=== PATIENT | female | born 1955 | race Caucasian/White ===

== ENCOUNTER 2016-06-17 09:37 | Outpatient (CLI) | payer OTHER | END 2016-06-17 09:38 | disposition home or self-care (01) | DX: M85.80 Other specified disorders of bone density and structure, unspecified site (principal) ==

== ENCOUNTER 2016-06-17 09:40 | Outpatient (CLI) | payer OTHER | END 2016-06-17 09:41 | disposition home or self-care (01) | DX: Z12.31 Encounter for screening mammogram for malignant neoplasm of breast (principal) ==

== ENCOUNTER 2017-01-21 16:07 | Observation (INO) | payer OTHER ==
--- NOTE | 2017-01-21 16:55 | ED Physician Documentation ---
PD HPI FOCAL NEURO - Stated complaint Stated Complaint: DIZZY/BLURRY VISION - Chief complaint Chief Complaint: Neuro - History obtained from History obtained from: Patient - History of Present Illness Timing - onset: Other (At approximately 3 PM she developed dizziness, first lightheadedness and then feeling off balance and a friend noticed she was slurring her speech and she was having difficulty texting on the phone. The at one point thought that she had some disconjugate gaze with the left eye being superiorly deviated. She feels mostly better now but not completely resolved.) Review of Systems Ten Systems: 10 systems reviewed and negative Constitutional: denies: Fever, Chills Eyes: denies: Loss of vision, Decreased vision, Photophobia Ears: denies: Loss of hearing, Ear pain Nose: denies: Rhinorrhea / runny nose, Congestion Cardiac: denies: Chest pain / pressure, Palpitations Respiratory: denies: Dyspnea, Cough PD PAST MEDICAL HISTORY - Past Medical History Cardiovascular: None Respiratory: None Endocrine/Autoimmune: HyPOthyroidism GI: GERD : None HEENT: None Psych: None Musculoskeletal: None Derm: None - Past Surgical History General: 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, 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 - Present Medications Home Medications: Ambulatory Orders Medication Instructions Recorded Confirmed Levothyroxine [Synthroid] 25 mcg PO DAILY 08/14/14 10/13/14 Omeprazole [Prilosec] 1 tab PO BID 08/14/14 10/13/14 Fexofenadine [Danielle] 180 mg PO DAILY 10/03/14 10/03/14 - Allergies Allergies/Adverse Reactions: Allergies Allergy/AdvReac Type Severity Reaction Status Date / Time codeine AdvReac Severe Nausea Verified 10/03/14 14:44 amoxicillin trihydrate * AdvReac Intermediate Yeast Verified 10/03/14 14:44 [From Augmentin] Infection potassium clavulanate * AdvReac Intermediate Yeast Verified 10/03/14 14:44 [From Augmentin] Infection - Social History Does the pt drink ETOH?: No Does the pt have substance abuse?: No - Family History Family history: reports: Non contributory PD ED PE NORMAL - Vitals Vital signs reviewed: Yes - General General: Alert and oriented X 3, No acute distress - HEENT HEENT: PERRL, EOMI - Neck Neck: Supple, no meningeal sign, No bony TTP - Cardiac Cardiac: RRR, No murmur - Respiratory Respiratory: No respiratory distress, Clear bilaterally - Abdomen Abdomen: Normal bowel sounds, Soft, Non tender - Back Back: No CVA TTP, No spinal TTP - Extremities Extremities: No edema, No calf tenderness / cord - Neuro Neuro: Alert and oriented X 3, Normal speech - Psych Psych: Normal mood, Normal affect NIHSS - Time Time: 16:45 - Level of Consciousness Level of consciousness: (0) Alert, Keenly responsive LOC Questions: (0) Answers both Q's correct LOC Commands: (0) Performs both correctly - Gaze Best Gaze: (0) Normal - Visual Visual: (0) No loss - Facial Palsy Facial Palsy: (0) Normal, symmetrical movement - Motor Arms (both separate) Motor Arm (right): (0) No drift Motor Arm (left): (0) No drift - Motor Legs (both separate) Motor Leg (right): (0) No drift Motor Leg (left): (0) No drift - Limb Ataxia Limb Ataxia: (0) Absent - Sensory Sensory: (0) Normal - Best Language Best Language: (0) No aphasia - Dysarthria Dysarthria: (0) Normal - Extinction and Inattention (formally neg Extinction and inattention: (0) No abnormality - Total Score/Results Total Score/Result: 0 Results - Vitals Vitals: Vital Signs - 24 hr 01/21/17 16:36 Temperature 35.8 C L Heart Rate 57 L Respiratory 16 Rate Blood Pressure 125/78 O2 Saturation 100 Oxygen O2 Source Room air - EKG (time done) 1712 Rate: Rate (enter#) (50) Rhythm: NSR [place]: Normal Intervals: Normal [place] QRS: Normal Ischemia: Normal ST segments Computer interpretation: Agree with computer - Labs Labs: Laboratory Tests 01/21/17 01/21/17 01/21/17 16:45 16:45 16:45 WBC 5.1 RBC 4.92 Hgb 14.7 Hct 43.7 MCV 88.7 MCH 29.8 MCHC 33.6 RDW 12.6 Plt Count 142 MPV 9.6 Neut # 3.4 Lymph # 1.0 L [place]ill # 0.5 Eos # 0.1 Baso # 0.0 Absolute Nucleated RBC 0.01 Nucleated RBCs 0.1 PT 11.5 INR 1.0 Sodium 139 Potassium 3.8 Chloride 101 Carbon Dioxide 30 Anion Gap 8.0 BUN 19 Creatinine 0.6 Estimated GFR (MDRD) 101 Glucose 104 H POC Whole Bld Glucose Calcium 9.4 Total Bilirubin 0.3 AST 36 ALT 36 Alkaline Phosphatase 74 Total Protein 7.0 Albumin 4.6 Globulin 2.4 Albumin/Globulin Ratio 1.9 Lipase 55 H 01/21/17 17:15 WBC RBC Hgb Hct MCV MCH MCHC RDW Plt Count MPV Neut # Lymph # Traill # Eos # Baso # Absolute Nucleated RBC Nucleated RBCs PT INR Sodium Potassium Chloride Carbon Dioxide Anion Gap BUN Creatinine Estimated GFR (MDRD) Glucose POC Whole Bld Glucose 93 Calcium Total Bilirubin AST ALT Alkaline Phosphatase Total Protein Albumin Globulin Albumin/Globulin Ratio Lipase - Rads (name of study) CT head Radiology: EMP read contemporaneously (normal) PD MEDICAL DECISION MAKING - ED course ED course: This is a 61-year-old woman with acute strokelike symptoms, she presents within the window for TPA, however at this juncture her examination is normal with a 0 on the NIH stroke scale, and her symptoms are rapidly resolving. Her head CT was negative, her examination remained unremarkable. Call to the hospitalist for observation and likely carotid ultrasonography and potential MRI in the morning at 5:26 PM. 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
[2017-01-21 17:02] LABS: BASOPHILS % (AUTO) 0.7 %; EOSINOPHILS # (AUTO) 0.1 10^3/uL (0.0-0.7); EOSINOPHILS % (AUTO) 2.3 %; HCT - HEMATOCRIT 43.7 % (37.0-47.0); HGB - HEMOGLOBIN 14.7 g/dL (12.0-16.0); LYMPHOCYTES % (AUTO) 20.1 %; MEAN CORPUSCULAR HEMOGLOBIN 29.8 pg (27.0-31.0); MEAN CORPUSCULAR HGB CONC 33.6 g/dL (32.0-36.0); MEAN CORPUSCULAR VOLUME 88.7 fL (81.0-99.0); MEAN PLATELET VOLUME 9.6 fL (7.9-10.8); MONOCYTES # (AUTO) 0.5 10^3/uL (0.0-1.0); MONOCYTES % (AUTO) 9.9 %; NEUTROPHILS # (AUTO) 3.4 10^3/uL (1.5-6.6); NUCLEATED RED BLOOD CELLS AUTO 0.1 /100WBC; RED BLOOD COUNT 4.92 10^6/uL (4.20-5.40); RED CELL DISTRIBUTION WIDTH 12.6 % (12.0-15.0); UNCORRECTED WHITE BLOOD COUNT 5.1 x10^3/uL; WHITE BLOOD COUNT 5.1 x10^3/uL (4.8-10.8)
[2017-01-21 17:15] LABS: PT - PROTHROMBIN TIME 11.5 secs (9.9-12.6)
[2017-01-21 17:16] LABS: ALBUMIN/GLOBULIN RATIO 1.9 (1.0-2.2); BILIRUBIN,TOTAL 0.3 mg/dL (0.2-1.0); CALCIUM 9.4 mg/dL (8.5-10.3); CREATININE 0.6 mg/dL (0.4-1.0); POTASSIUM 3.8 mmol/L (3.5-5.0)
--- NOTE | 2017-01-21 17:19 | CT Report ---
EXAM: CT HEAD EXAM DATE: 01/21/2017 05:08 PM. CLINICAL HISTORY: Slurred speech, dizzy. COMPARISON: None. TECHNIQUE: Multiaxial CT images were obtained from the foramen magnum to the vertex. IV contrast: Non e. Reformats: Coronal. In accordance with CT protocol optimization, one or more of the following dose reduction techniques w ere utilized for this exam: automated exposure control, adjustment of mA and/or KV based on patient s ize, or use of iterative reconstructive technique. FINDINGS: Parenchyma: No intraparenchymal hemorrhage. No evidence of mass, midline shift, or CT findings of inf arction. Alvarenga-white differentiation is distinct. Extraaxial Spaces: Normal for age. No subdural or epidural collections identified. Ventricles: Normal in size and position. Sinuses: Imaged paranasal sinuses, orbits, and mastoids show no significant abnormality. Bones: No evidence of fracture or calvarial defect. Other: None. IMPRESSION: No acute intracranial abnormality. [facility] Critical test notification: The call report notification system was initiated by Dr. Richard Brock at 17:12 hrs on 01/21/17. The above findings were discussed with Dr. French by Dr. Richard Brock at 17:14 hrs on 01/21/17. Referring Provider Line: [phone] SITE ID: [id number]
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
[2017-01-21] MEDS ORDERED: ONDANSETRON ODT 4 MG TABLET TL PRN (18:42)
[2017-01-21] MEDS ORDERED: ACETAMINOPHEN 325 MG TABLET PO PRN (18:42)
[2017-01-21] MEDS ORDERED: SODIUM CHLORIDE FLUSH 0.9% 10 ML SYRINGE IVP PRN (18:42)
[2017-01-21 19:49] LABS: THYROID STIMULATING HORMONE 3.1 uIU/mL (0.34-5.60)
--- NOTE | 2017-01-21 20:04 | Ultrasound Preliminary Report ---
Exam: US Carotid Doppler Complete IMPRESSION: 1. Mild bilateral predominant calcified atheromatous plaque with no hemodynamically significant steno sis. Validated velocity measurements with angiographic measurements and velocity criteria are extrapolated from diameter data as defined by the Society of Radiologists in Ultrasound Consensus Conference Radi ology 2003; 229;340-346. [facility] SITE ID: [id number]
--- NOTE | 2017-01-21 20:07 | Ultrasound Report ---
EXAM: CAROTID DOPPLER ULTRASOUND EXAM DATE: 01/21/2017 07:38 PM. CLINICAL HISTORY: Tia or cva with lightheadedness. COMPARISON: None. TECHNIQUE: Real-time sonographic vascular imaging was performed by the director agricultural services through the Relative[employer]ai d arterial system with a linear transducer utilizing color-flow, Doppler flow and spectral analysis. Multiple inbound sales representative static images were saved for review. FINDINGS: Alvarenga scale evaluation of the carotid arteries demonstrates mild predominantly calcified ramya que in the distal common carotid arteries extending into the proximal internal carotid arteries. Peak systolic velocities and ICA/CCA ratios are within normal limits as follows Transcription to insert worksheet here. Other: None. IMPRESSION: 1. Mild bilateral predominant calcified atheromatous plaque with no hemodynamically significant steno sis. Validated velocity measurements with angiographic measurements and velocity criteria are extrapolated from diameter data as defined by the Society of Radiologists in Ultrasound Consensus Conference Radi ology 2003; 229;340-346. [facility] Referring Provider Line: [phone] SITE ID: [id number]
[2017-01-21] MEDS: SODIUM CHLORIDE 0.9% 1,000 ML IV SCH (20:24)
[2017-01-21 20:37] LABS: BILIRUBIN,URINE NEGATIVE (NEGATIVE); PH,URINE 6.5 PH (5.0-7.5)
[2017-01-21 20:46] LABS: UR CULTURE IF IND NOT INDICATED; WBC,URINE 0-3 /HPF (0-5)
[2017-01-21] MEDS: ASPIRIN CHEW 81 MG TABLET PO SCH (22:10)
[2017-01-21] MEDS: SODIUM CHLORIDE FLUSH 0.9% 10 ML SYRINGE IVP SCH (22:12)
[2017-01-21] MEDS: MULTIVITAMIN TABLET PO SCH (22:13)
[2017-01-21] MEDS ORDERED: diphenhydrAMINE 25 MG CAPSULE PO PRN (23:26)
[2017-01-22] MEDS: SODIUM CHLORIDE FLUSH 0.9% 10 ML SYRINGE IVP SCH (04:17)
[2017-01-22] MEDS: SODIUM CHLORIDE 0.9% 1,000 ML IV SCH (05:08)
[2017-01-22 06:11] LABS: BASOPHILS % (AUTO) 0.7 %; EOSINOPHILS # (AUTO) 0.1 10^3/uL (0.0-0.7); EOSINOPHILS % (AUTO) 3.4 %; HCT - HEMATOCRIT 38.5 % (37.0-47.0); LYMPHOCYTES # (AUTO) 1.4 10^3/uL (1.5-3.5); LYMPHOCYTES % (AUTO) 37.1 %; MEAN CORPUSCULAR HEMOGLOBIN 29.6 pg (27.0-31.0); MEAN CORPUSCULAR HGB CONC 33.7 g/dL (32.0-36.0); MEAN CORPUSCULAR VOLUME 87.9 fL (81.0-99.0); MEAN PLATELET VOLUME 9.3 fL (7.9-10.8); MONOCYTES # (AUTO) 0.4 10^3/uL (0.0-1.0); MONOCYTES % (AUTO) 12.2 %; NEUTROPHILS # (AUTO) 1.7 10^3/uL (1.5-6.6); NEUTROPHILS % (AUTO) 46.6 %; NUCLEATED RED BLOOD CELLS AUTO 0.1 /100WBC; RED BLOOD COUNT 4.38 10^6/uL (4.20-5.40); RED CELL DISTRIBUTION WIDTH 12.5 % (12.0-15.0); UNCORRECTED WHITE BLOOD COUNT 3.6 x10^3/uL; WHITE BLOOD COUNT 3.6 x10^3/uL (4.8-10.8)
[2017-01-22 06:27] LABS: ALBUMIN/GLOBULIN RATIO 1.7 (1.0-2.2); BILIRUBIN,TOTAL 0.6 mg/dL (0.2-1.0); BUN - BLOOD UREA NITROGEN 15 mg/dL (6-20); CALCIUM 8.5 mg/dL (8.5-10.3); CARBON DIOXIDE - CO2 28 mmol/L (21-32); CHLORIDE 106 mmol/L (101-111); CHOLESTEROL 166 mg/dL; CREATININE 0.5 mg/dL (0.4-1.0); GFR - MDRD 125 (>89); GLUCOSE 93 mg/dL (70-100); HDL CHOLESTEROL 56 mg/dL; LDL/HDL RATIO 1.8 (<4.4); POTASSIUM 3.6 mmol/L (3.5-5.0); SODIUM 140 mmol/L (135-145); TOTAL PROTEIN 5.7 g/dL (6.7-8.2); TRIGLYCERIDES 55 mg/dL; VLDL CHOLESTEROL 11 mg/dL
[2017-01-22] MEDS ORDERED: LEVOTHYROXINE 25 MCG TABLET PO SCH (07:00)
[2017-01-22] MEDS ORDERED: SACCHAROMYCES BOULARDII 250 MG CAPSULE PO SCH (08:00)
--- NOTE | 2017-01-22 08:04 | Discharge Plan ---
Discharge Plan Disposition: 01 Home, Self Care Condition: Good Prescriptions: Rachel-3 Acid Ethyl Esters [Lovaza] 1 gm PO BID #60 capsule Melatonin/Herbal Complex #184 [Melatonin + l-Theanine Softgel] 6 mg PO QPM #60 capsule Multivitamin [Theragran] 1 tab PO DAILYWM #30 tablet Cholecalciferol [Vitamin D3] 5,000 unit PO BID #60 capsule Diet: Regular Activity Restrictions: No Restrictions Shower Restrictions: No Driving Restrictions: No Weight Bearing: Full Weight Instruction Topics: Headache Migraine Triggers Prevent Additional Instructions or Follow Up instructions: Please continue all medications as prescribed. You have been given prescriptions for supplements to take daily Please eat a gluten free dairy free diet for at least 3 weeks to see if this has any affect on your headaches and fatigue. You have been given some information regarding meals and healthy eating habits continue to exercise daily walking is a great form. Get plenty of sleep nightly. Avoid soda and limit caffeine. Drink more water daily Return to the ER if symptoms worsen or you have chest pain or shortness of breath. See your PCP within one week of discharge or sooner if symptoms return. FOR INFORMATION REGARDING THE [facility] PLEASE VISIT [email or web address] Also additional questions can be addressed to Nelly Laguna, MPH/MSN [phone] and request consult for telehealth or for any questions via email. Please see the information provided regarding an antiinflammatory diet No Smoking: If you smoke, Please STOP! Call for help. Follow-up with: Lina Florence MD [Primary Care Provider] -
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
[2017-01-22] MEDS ORDERED: ENOXAPARIN 40 MG/0.4 ML SYRINGE SUBQ SCH (09:00)
[2017-01-22] MEDS ORDERED: OMEGA-3 ACID ETHYL ESTERS 1 GM CAPSULE PO SCH (09:00)
[2017-01-22] MEDS ORDERED: POLYETHYLENE GLYCOL 3350 17 GM PACKET PO SCH (09:00)
[2017-01-22] MEDS: MULTIVITAMIN TABLET PO SCH (09:13)
[2017-01-22] MEDS: ASPIRIN CHEW 81 MG TABLET PO SCH (09:13)
[2017-01-22] MEDS ORDERED: GADOBUTROL 7.5 MMOL/7.5 ML VIAL IVP ONE (11:59)
[2017-01-22 12:20] VITALS: BP 127/75
--- NOTE | 2017-01-22 13:07 | MRI Preliminary Report ---
Exam: MRI Brain W/O IMPRESSION: 1. No MRI evidence of acute or subacute infarct, intracranial hemorrhage, mass/mass effect, midline s hift, or hydrocephalus. 2. Concurrently obtained MRA head and MRA neck are dictated separately. 3. Scattered T2/FLAIR hyperintense subcortical, deep, and periventricular white matter lesions within cerebral hemispheres bilaterally. While nonspecific, these are favored to represent sequela of chron ic microangiopathy. RADIA SITE ID: [id number]
--- NOTE | 2017-01-22 13:10 | MRI Report ---
EXAM: MRI BRAIN WITHOUT CONTRAST EXAM DATE: 01/22/2017 12:28 PM. CLINICAL HISTORY: Cva. COMPARISON: CT head 01/21/2017 TECHNIQUE: Multiplanar, multisequence T1-weighted and fluid-sensitive MR sequences of the brain were performed. Sequences optimized for routine evaluation. Other: None. IV Contrast: None. FINDINGS: Brain Volume: Normal for age. Parenchyma/Dura: No masses, infarcts, or hemorrhage. Scattered T2/FLAIR hyperintense subcortical, dahlia p, and periventricular white matter lesions within cerebral hemispheres bilaterally. No parenchymal m icrohemorrhages. Ventricles/Cisterns: Normal. No hydrocephalus. Sinuses: Normal. No sinusitis evident. Bones: Normal. Other: None. IMPRESSION: 1. No MRI evidence of acute or subacute infarct, intracranial hemorrhage, mass/mass effect, midline s hift, or hydrocephalus. 2. Concurrently obtained MRA head and MRA neck are dictated separately. 3. Scattered T2/FLAIR hyperintense subcortical, deep, and periventricular white matter lesions within cerebral hemispheres bilaterally. While nonspecific, these are favored to represent sequela of chron ic microangiopathy. [facility] Referring Provider Line: [phone] SITE ID: [id number]
--- NOTE | 2017-01-22 13:31 | MRI Preliminary Report ---
Exam: MRI Angio Neck W/WO (MRA) IMPRESSION: 1. Normal neck MRA. No hemodynamically significant , dissections, occlusions, aneurysms, vascular mal formations. 2. Concurrently obtained MRA head is dictated separately. [facility] SITE ID: [id number]
--- NOTE | 2017-01-22 13:34 | MRI Preliminary Report ---
Exam: MRI Angio Brain W/O (MRA) IMPRESSION: Normal brain MRA. No hemodynamically significant stenoses, dissections, occlusions, vascu lar formations, or aneurysms. [facility] SITE ID: [id number]
--- NOTE | 2017-01-22 13:34 | MRI Report ---
EXAM: MR ANGIOGRAM NECK EXAM DATE: 01/22/2017 12:27 PM. CLINICAL HISTORY: Cva. COMPARISON: Carotid ultrasound 01/21/2017 TECHNIQUE: Multiplanar, multisequence MRA sequences of the neck were performed. Other: None. Post-pro cessing: Multiplanar 3D MIP reconstructions. IV Contrast: Without and with. 6 mL Gadavist Evaluation of arterial stenosis is based on a NASCET method of measurement. FINDINGS: RIGHT Common Carotid: Patent. No dissection or significant stenosis. Internal Carotid: Patent. No dissection or significant stenosis. External Carotid: Patent. No dissection or significant stenosis. Vertebral: Patent. No dissection or significant stenosis. LEFT Common Carotid: Patent. No dissection or significant stenosis. Internal Carotid: Patent. No dissection or significant stenosis. External Carotid: Patent. No dissection or significant stenosis. Vertebral: Patent. No dissection or significant stenosis. Intracranial Circulation: Concurrently obtained MR head restricted separately. Other: The soft tissues, bones, and lung apices are within normal limits. IMPRESSION: 1. Normal neck MRA. No hemodynamically significant , dissections, occlusions, aneurysms, vascular mal formations. 2. Concurrently obtained MRA head is dictated separately. [facility] Referring Provider Line: [phone] SITE ID: [id number]
--- NOTE | 2017-01-22 13:37 | MRI Report ---
EXAM MRA BRAIN EXAM DATE: 01/22/2017 12:27 PM. CLINICAL HISTORY: Cva. COMPARISON: MRI brain and MRA neck obtained concurrently TECHNIQUE: Multiplanar, multisequence MRA sequences of the brain were performed. Other: None. Post-pr ocessing: Multiplanar 3D MIP reconstructions. IV Contrast: None. FINDINGS: RIGHT Internal Carotid (ICA): No aneurysm, stenosis or anomaly. Middle Cerebral (MCA): No aneurysm, stenosis or anomaly. Anterior Cerebral (RITA): No aneurysm, stenosis or anomaly. Posterior Cerebral (CONSTRUCTION CREW MEMBER): No aneurysm, stenosis or anomaly. Posterior Communicating (P-COM): No aneurysm, stenosis or anomaly. Vertebral: No aneurysm, stenosis or anomaly in the visualized upper vertebral artery. LEFT Internal Carotid (ICA): No aneurysm, stenosis or anomaly. Middle Cerebral (MCA): No aneurysm, stenosis or anomaly. Anterior Cerebral (RITA): No aneurysm, stenosis or anomaly. Posterior Cerebral (CONSTRUCTION CREW MEMBER): No aneurysm, stenosis or anomaly. Posterior Communicating (P-COM): No aneurysm, stenosis or anomaly. Vertebral: No aneurysm, stenosis or anomaly in the visualized upper vertebral artery. MIDLINE Anterior Communicating (A-COM): No aneurysm, stenosis or anomaly. Other: None. IMPRESSION: Normal brain MRA. No hemodynamically significant stenoses, dissections, occlusions, vascu lar formations, or aneurysms. [facility] Referring Provider Line: [phone] SITE ID: [id number]
== END 2017-01-22 13:05 | disposition home or self-care (01) ==
LOC: ED 16:07 → OBS 18:32
PROVIDERS: ADMIT Nurse Practitioner; ATTEND Nurse Practitioner
DX: R51 Headache (principal); R42 Dizziness and giddiness; R53.1 Weakness; E03.9 Hypothyroidism, unspecified; K21.9 Gastro-esophageal reflux disease without esophagitis; Z79.899 Other long term (current) drug therapy
CPT/HCPCS: 36415; 70450; 70544; 70549; 70551; 80053; 80061; 81001; 82607; 83690; 83735; 84439; 84443; 84481; 84484; 85025; 85610; 85730; 93005; 93306; 93880; 96360; 96361; 96372; 99284; 99285; A9270; A9585; G0378; J1650; 87086

== ENCOUNTER 2017-06-18 10:48 | Outpatient (CLI) | payer OTHER ==
--- NOTE | 2017-06-19 15:41 | Mammography Report ---
DIGITAL SCREENING MAMMOGRAM: 06/18/2017 CLINICAL INDICATION: A 61-year-old, for screening. COMPARISON: 06/2016, 05/2014, 05/2013, 05/2012, 03/2011, 03/2010. TECHNIQUE: Routine CC and MLO projections were obtained of the breasts. FINDINGS: The breasts again demonstrate heterogeneously dense fibroglandular parenchyma bilaterally. Coarse, typically benign calcifications are present. No suspicious masses, clustered microcalcifications, or regions of architectural distortion are identified. IMPRESSION: BENIGN FINDINGS. RECOMMENDATION: ROUTINE ANNUAL SCREENING UNLESS OTHERWISE CLINICALLY INDICATED. BIRADS CATEGORY 2-BENIGN FINDINGS. STANDARD QUALIFYING STATEMENTS: 1. This examination was reviewed with the aid of Computer-Aided Detection (CAD). 2. A negative or benign imaging report should not delay biopsy if clinically suspicious findings are present. Consider surgical consultation if warranted. More than 5% of cancers are not identified by imaging. 3. Dense breasts may obscure an underlying neoplasm. TD: 06/19/2017 15:36
== END 2017-06-18 10:49 | disposition home or self-care (01) ==
LOC: DI 10:48
PROVIDERS: ATTEND Internal Medicine
DX: Z12.31 Encounter for screening mammogram for malignant neoplasm of breast (principal)
CPT/HCPCS: 77067

== ENCOUNTER 2017-06-24 09:17 | Outpatient (CLI) | payer OTHER | END 2017-06-24 09:18 | disposition home or self-care (01) | LOC: LAB 09:17 | PROVIDERS: ATTEND Internal Medicine | DX: K90.0 Celiac disease (principal) | CPT/HCPCS: 36415; 81599; 83516; 86255 ==

== ENCOUNTER 2018-07-05 10:48 | Outpatient (CLI) | payer OTHER ==
--- NOTE | 2018-07-06 08:49 | Mammography Report ---
Reason: SCREENING MAMMO Procedure Date: 07/05/2018 Accession Number: [id number] / [id number] Procedure: MGN - Screening Mammo Dig Bilat CPT Code: FULL RESULT: EXAM: Screening Mammo Dig Bilat DATE: 07/05/2018 11:12 AM CLINICAL HISTORY: Screening encounter. No reported risk factors. TECHNIQUE: Bilateral CC and MLO views were obtained. COMPARISON: 06/18/2017 through 05/23/2013. FINDINGS: The breasts demonstrate heterogeneously dense fibroglandular parenchyma bilaterally. There are coarse typically benign calcifications. No suspicious masses, clustered microcalcifications, or regions of architectural distortion are identified. IMPRESSION: Benign findings RECOMMENDATION: Routine annual screening unless otherwise clinically indicated. BIRADS CATEGORY 2: Benign findings STANDARD QUALIFYING STATEMENTS: 1. This examination was reviewed with the aid of Computer-Aided Detection (CAD). 2. A negative or benign imaging report should not delay biopsy if clinically suspicious findings are present. Consider surgical consultation if warrented. More than 5% of cancers are not identified by imaging. 3. Dense breasts may obscure an underlying neoplasm.
== END 2018-07-05 10:49 | disposition home or self-care (01) ==
LOC: DI.N 10:48
PROVIDERS: ATTEND Internal Medicine
DX: Z12.31 Encounter for screening mammogram for malignant neoplasm of breast (principal)
CPT/HCPCS: 77067

== ENCOUNTER 2018-09-03 18:04 | Outpatient (CLI) | payer OTHER ==
--- NOTE | 2018-09-05 10:38 | Ultrasound Report ---
Reason: ABNORMAL LEVELS OF OTHER SERUM ENZYMES Procedure Date: 09/03/2018 Accession Number: [id number] / [id number] Procedure: US - Abdomen Limited CPT Code: FULL RESULT: EXAM: ABDOMEN ULTRASOUND LIMITED, RUQ EXAM DATE: 09/03/2018 06:30 PM. CLINICAL HISTORY: Abnormal levels of other serum enzymes. COMPARISON: ABDOMEN/PELVIS W/ 09/23/2014. TECHNIQUE: Real-time scanning was performed with static images obtained. FINDINGS: Liver: Normal in size and echotexture. 15.2 cm. Main portal vein flow: Hepatopetal. Gallbladder: Gallbladder surgically absent. Biliary System: CBD measures 3.5 mm. No intrahepatic or extrahepatic ductal dilatation. Pancreas: Limited visualization. Right kidney: 10 cm. No hydronephrosis. Abdominal aorta and IVC: Normal. Other: Examination limited by limited mobility and overlying bowel gas. IMPRESSION: 1. Status post cholecystectomy. 2. No liver mass or intrahepatic bile duct dilation. 3. No acute abnormality noted of the abdominal ultrasound. [facility]
== END 2018-09-03 18:05 | disposition home or self-care (01) ==
LOC: DI 18:04
PROVIDERS: ATTEND Internal Medicine
DX: R74.8 Abnormal levels of other serum enzymes (principal); Z90.49 Acquired absence of other specified parts of digestive tract
CPT/HCPCS: 76705

== ENCOUNTER 2019-04-04 10:55 | Outpatient (CLI) | payer OTHER ==
[2019-04-04 12:00] LABS: ALBUMIN 4.5 g/dL (3.2-5.5); ALKALINE PHOSPHATASE 43 IU/L (42-121); ALT ALANINE AMINOTRANSFERASE 34 IU/L (10-60); AST ASPARTATE AMINOTRANSFERASE 32 IU/L (10-42); BILIRUBIN,TOTAL 0.8 mg/dL (0.2-1.0); TOTAL PROTEIN 7.2 g/dL (6.7-8.2)
[2019-04-04 12:05] LABS: BILIRUBIN,DIRECT < 0.1 mg/dL (0.1-0.5)
== END 2019-04-04 10:56 | disposition home or self-care (01) ==
LOC: LAB 10:55
PROVIDERS: ATTEND Physician Assistant Medical
DX: Z79.899 Other long term (current) drug therapy (principal); B35.1 Tinea unguium
CPT/HCPCS: 36415; 80076

== ENCOUNTER 2019-10-14 14:25 | Outpatient (CLI) | payer MEDICARE, OTHER ==
[2019-10-14 14:57] LABS: BASOPHILS % (AUTO) 0.5 %; EOSINOPHILS # (AUTO) 0.1 10^3/uL (0.0-0.7); EOSINOPHILS % (AUTO) 2.1 %; HGB - HEMOGLOBIN 13.9 g/dL (12.0-16.0); LYMPHOCYTES # (AUTO) 1.1 10^3/uL (1.5-3.5); LYMPHOCYTES % (AUTO) 25.9 %; MEAN CORPUSCULAR HEMOGLOBIN 29.9 pg (27.0-31.0); MEAN CORPUSCULAR HGB CONC 32.7 g/dL (32.0-36.0); MEAN CORPUSCULAR VOLUME 91.4 fL (81.0-99.0); MEAN PLATELET VOLUME 9.8 fL (7.9-10.8); MONOCYTES # (AUTO) 0.4 10^3/uL (0.0-1.0); MONOCYTES % (AUTO) 9.9 %; NEUTROPHILS # (AUTO) 2.6 10^3/uL (1.5-6.6); NEUTROPHILS % (AUTO) 61.4 %; PLT - PLATELET COUNT 196 10^3/uL (130-450); RED BLOOD COUNT 4.65 10^6/uL (4.20-5.40); RED CELL DISTRIBUTION WIDTH 11.9 % (12.0-15.0); WHITE BLOOD COUNT 4.3 x10^3/uL (4.8-10.8)
[2019-10-14 15:51] LABS: RHEUMATOID FACTOR NEGATIVE (Negative)
== END 2019-10-14 14:26 | disposition home or self-care (01) ==
LOC: LAB 14:25
PROVIDERS: ATTEND Nurse Practitioner Family
DX: L40.0 Psoriasis vulgaris (principal)
CPT/HCPCS: 36415; 81599; 82728; 85025; 85651; 86200; 86430; 86812

== ENCOUNTER 2019-12-16 06:23 | Day surgery (SDC) | payer MEDICARE, OTHER ==
[2019-12-16] MEDS ORDERED: fentaNYL 250 MCG/5 ML VIAL IVP ONE (06:24)
[2019-12-16] MEDS ORDERED: MIDAZOLAM 2 MG/2 ML VIAL IVP ONE (06:24)
[2019-12-16] MEDS ORDERED: LIDO GARGLE 30 ML BOTTLE ONE (07:07)
[2019-12-16] MEDS ORDERED: LACTATED RINGERS 1,000 ML IV ONE ×2 (07:10→08:35)
[2019-12-16] MEDS ORDERED: BENZOCAINE/TETRACAINE/BUTAMBEN 20 GM TOP ONE (07:35)
[2019-12-16] MEDS ORDERED: LIDO GARGLE 30 ML BOTTLE TOP ONE (07:35)
[2019-12-16 09:09] VITALS: BP 117/93
== END 2019-12-16 06:24 | disposition home or self-care (01) ==
LOC: SDS 06:23
PROVIDERS: ATTEND Surgery
PROC: 0DB48ZX Excision of Esophagogastric Junction, Via Natural or Artificial Opening Endoscopic, Diagnostic (ICD-10-PCS; 2019-12-16)
PROC: 0DBN8ZX Excision of Sigmoid Colon, Via Natural or Artificial Opening Endoscopic, Diagnostic (ICD-10-PCS; principal; 2019-12-16 07:30)
PROC: 0DBL8ZX Excision of Transverse Colon, Via Natural or Artificial Opening Endoscopic, Diagnostic (ICD-10-PCS; 2019-12-16 07:30)
DX: Z12.11 Encounter for screening for malignant neoplasm of colon (principal); D12.3 Benign neoplasm of transverse colon; K63.5 Polyp of colon; K63.89 Other specified diseases of intestine; K21.9 Gastro-esophageal reflux disease without esophagitis; Z09 Encounter for follow-up examination after completed treatment for conditions other than malignant neoplasm; Z87.19 Personal history of other diseases of the digestive system
CPT/HCPCS: 43239; 45380; A9270; J3010; J7120

== ENCOUNTER 2020-07-19 18:47 | Outpatient (CLI) | payer MEDICARE, OTHER | END 2020-07-19 18:48 | disposition home or self-care (01) | LOC: COV 18:47 | PROVIDERS: ATTEND Family Medicine | DX: U07.1 COVID-19 (principal) ==

== ENCOUNTER 2020-08-07 15:02 | Outpatient (CLI) | payer MEDICARE, OTHER ==
[2020-08-09 13:41] LABS: ANA SCREEN NEGATIVE (NEGATIVE)
[2020-08-09 14:41] LABS: CERULOPLASMIN 33 mg/dL (18-53)
[2020-08-09 22:42] LABS: SMOOTH MUSCLE IGG AB <20 U
[2020-08-09 23:30] LABS: ALBUMIN 4.2 g/dL (3.8-4.8); ALPHA 1 GLOBULIN 0.3 g/dL (0.2-0.3); ALPHA 2 GLOBULIN 0.7 g/dL (0.5-0.9); BETA 1 GLOBULIN 0.4 g/dL (0.4-0.6); BETA 2 GLOBULIN 0.3 g/dL (0.2-0.5); GAMMA GLOBULIN 0.7 g/dL (0.8-1.7)
[2020-08-10 00:33] LABS: LIVER KIDNEY MICROSOME AB <20.0 U
== END 2020-08-07 15:03 | disposition home or self-care (01) ==
LOC: LAB 15:02
PROVIDERS: ATTEND Internal Medicine
DX: R74.8 Abnormal levels of other serum enzymes (principal)
CPT/HCPCS: 36415; 81599; 82105; 82390; 83516; 84155; 84165; 86038; 86255; 86376

== ENCOUNTER 2020-09-19 13:20 | Outpatient (CLI) | payer MEDICARE, OTHER ==
--- NOTE | 2020-09-19 15:29 | CT Report ---
PROCEDURE: ABDOMEN WO INDICATIONS: ELEVATED LFTS, ELEVATED AFP TECHNIQUE: Non-contrast 5 mm thick sections acquired from the diaphragm to the below aortic bifurcati on. 5 mm thick coronal and sagittal reformats were performed. COMPARISON: None. INDICATIONS: ELEVATED LFTS, ELEVATED AFP. COMPARISON: Ultrasound abdomen limited, 09/03/2018. CT abdomen and pelvis with contrast, 09/23/2014. FINDINGS: Image quality: Excellent. Lung bases: Lung bases are clear. Heart size is normal. Small hiatal hernia Genitourinary system: Both kidneys are normal in size. No kidney stones. No hydronephrosis or bianca nephric fat stranding. Both ureters are non-distended through their expected courses. Bladder wall is normal in thickness; no bladder stones. Abdomen: Liver and spleen are normal in size. Gallbladder wall is surgically absent. Pancreas is n ormal in size. No adrenal nodules. Unopacified bowel loops demonstrate normal caliber and wall thic kness. No retroperitoneal or mesenteric adenopathy. Aorta and inferior vena cava are normal in size . No free fluid or air. Bones: No suspicious bony abnormalities. No vertebral body compression fractures. Degenerative carrasco ges are noted in lumbar spine. IMPRESSION: 1. No abnormalities are identified on this noncontrast enhanced CT exam of abdomen. A cause for eleva ron LFT and AFP is not identified. Of note, a noncontrast enhanced CT is not adequate to exclude a he patic mass such as a hepatoma. Liver protocol CT or MRI is recommended for further evaluation if clin ically indicated. Reviewed by: Kehinde Limon MD on 09/19/2020 3:28 PM PDT Approved by: Kehinde Limon MD on 09/19/2020 3:28 PM PDT Station ID: [id number]
== END 2020-09-19 13:21 | disposition home or self-care (01) ==
LOC: DI 13:20
PROVIDERS: ATTEND Internal Medicine
DX: R94.5 Abnormal results of liver function studies (principal); R77.2 Abnormality of alphafetoprotein

== ENCOUNTER 2020-10-01 13:11 | Outpatient (CLI) | payer MEDICARE, OTHER ==
[2020-10-01] MEDS ORDERED: GADOBUTROL 10 MMOL/10 ML VIAL ONE (13:31)
[2020-10-01 13:37] LABS: CREATININE 0.7 mg/dL (0.4-1.0)
--- NOTE | 2020-10-01 16:37 | MRI Report ---
PROCEDURE: Abdomen W/WO INDICATIONS: ELEVATED LFTS CONTRAST: IV CONTRAST: Gadavist ml: 5.7 TECHNIQUE: Coronal ultra fast SE, axial 2D spoiled GE in- and [id number]; axial breath-hold T2 fast SE. Dynam ic axial ultra fast GE during the administration of contrast; post-contrast coronal ultra fast GE or 2D spoiled GE with fat saturation from the hepatic dome to the iliac crests. Optional diffusion weig hted imaging and ADC may be performed. COMPARISON: CT abdomen pelvis 09/19/2020, abdominal ultrasound 09/03/2018 FINDINGS: Image quality: Suboptimal secondary to patient motion.. Lung bases: No basal pleural effusions. Heart size is normal. Solid organs: Liver and spleen are normal in size and enhancement. No significant hepatic steatosis . 8 mm cyst along the lateral aspect of the left hepatic lobe. No suspicious enhancing liver mass. Ga llbladder is surgically absent. Minor diffuse intrahepatic biliary dilatation, mainly centrally. The extrahepatic common duct is smooth contour and measures up to 11 mm in caliber. Tapers normally to th e ampulla and there are no intrinsic filling defects. Pancreatic duct is nondilated. Pancreas is norm al in morphology. No adrenal nodules. Both kidneys demonstrate normal size and enhancement, without hydronephrosis. Nodes and vessels: No retroperitoneal or mesenteric adenopathy by size criteria. Aorta and inferior vena cava are normal in size. Bowel and peritoneum: Unenhanced bowel loops are normal in caliber. No free fluid. Bones and soft tissues: No ventral hernias. Bone marrow is normal in overall signal. IMPRESSION: 1. Mild diffuse biliary duct dilatation without filling defect or extrinsic distal compression. This may be in part due to cholecystectomy change. Correlate with serial enzymes. 2. No suspicious liver mass to explain elevated AFP levels. Reviewed by: Fiona Obrien MD on 10/01/2020 4:36 PM PDT Approved by: Fiona Obrien MD on 10/01/2020 4:36 PM PDT Station ID: [id number]
== END 2020-10-01 13:12 | disposition home or self-care (01) ==
LOC: LAB 13:11
PROVIDERS: ATTEND Internal Medicine
DX: K83.9 Disease of biliary tract, unspecified (principal); R74.8 Abnormal levels of other serum enzymes; R77.2 Abnormality of alphafetoprotein; Z79.899 Other long term (current) drug therapy
CPT/HCPCS: 36415; 74183; 82565; A9585

== ENCOUNTER 2020-10-10 11:00 | Outpatient (CLI) | payer MEDICARE, OTHER ==
[2020-10-01] MEDS: GADOBUTROL 10 MMOL/10 ML VIAL IVP ONE (16:45)
--- NOTE | 2020-10-11 13:30 | Mammography Report ---
BILATERAL DIGITAL SCREENING MAMMOGRAM 3D/2D: 10/10/2020 CLINICAL: Routine screening. Comparison is made to exams dated: 10/24/2019 mammogram, 07/05/2018 mammogram, 06/18/2017 mammogram, 06/17 mammogram, 05/27/2014 mammogram, and 05/23/2013 mammogram - [facility]. The ti ssue of both breasts is heterogeneously dense. This may lower the sensitivity of mammography. No significant masses, calcifications, or other findings are seen in either breast. There has been no significant interval change. IMPRESSION: NEGATIVE There is no mammographic evidence of malignancy. A 1 year screening mammogram is recommended. This exam was interpreted at Station ID: [id number]. NOTE: For mammograms, a report in lay terms will be sent to the patient. Approximately 15% of breast malignancies will not be visualized mammographically. In the management of a palpable breast mass, a negative mammogram must not discourage biopsy of a clinically suspicious lesion. Electronically Signed By: Edis Ibarra M.D. ddp/penrad:10/10/2020 14:29:48 ACR BI-RADS Category 1: Negative 3341F PARENCHYMAL PATTERN: (D) - The breast(s) demonstrate(s) heterogeneously dense fibroglandular kesha daniel. BI-RADS CATEGORY: (1) - 1 RECOMMENDATION: (ANNUAL) - Recommend routine annual screening mammography. 20211011 1 year screening LATERALITY: (B)
== END 2020-10-10 11:01 | disposition home or self-care (01) ==
LOC: DI 11:00
PROVIDERS: ATTEND Internal Medicine
DX: Z12.31 Encounter for screening mammogram for malignant neoplasm of breast (principal)

== ENCOUNTER 2021-08-19 08:00 | Outpatient (CLI) | payer MEDICARE, OTHER ==
[2021-08-19 17:44] LABS: BASOPHILS % (AUTO) 0.6 %; EOSINOPHILS # (AUTO) 0.2 10^3/uL (0.0-0.7); EOSINOPHILS % (AUTO) 6.1 %; HCT - HEMATOCRIT 43.9 % (37.0-47.0); HGB - HEMOGLOBIN 14.1 g/dL (12.0-16.0); LYMPHOCYTES # (AUTO) 1.1 10^3/uL (1.5-3.5); LYMPHOCYTES % (AUTO) 32.2 %; MEAN CORPUSCULAR HEMOGLOBIN 29.7 pg (27.0-31.0); MEAN CORPUSCULAR HGB CONC 32.1 g/dL (32.0-36.0); MEAN CORPUSCULAR VOLUME 92.4 fL (81.0-99.0); MEAN PLATELET VOLUME 10.4 fL (7.9-10.8); MONOCYTES # (AUTO) 0.4 10^3/uL (0.0-1.0); MONOCYTES % (AUTO) 10.7 %; NEUTROPHILS # (AUTO) 1.6 10^3/uL (1.5-6.6); NEUTROPHILS % (AUTO) 50.4 %; PLT - PLATELET COUNT 167 10^3/uL (130-450); RED BLOOD COUNT 4.75 10^6/uL (4.20-5.40); RED CELL DISTRIBUTION WIDTH 11.6 % (12.0-15.0); WHITE BLOOD COUNT 3.3 x10^3/uL (4.8-10.8)
[2021-08-19 18:18] LABS: ALBUMIN 4.2 g/dL (3.2-5.5); ALBUMIN/GLOBULIN RATIO 1.4 (1.0-2.2); ALKALINE PHOSPHATASE 35 IU/L (42-121); ALT ALANINE AMINOTRANSFERASE 29 IU/L (10-60); AST ASPARTATE AMINOTRANSFERASE 29 IU/L (10-42); BILIRUBIN,TOTAL 0.8 mg/dL (0.2-1.0); BUN - BLOOD UREA NITROGEN 19 mg/dL (6-20); CALCIUM 9.3 mg/dL (8.5-10.3); CARBON DIOXIDE - CO2 31 mmol/L (21-32); CHLORIDE 98 mmol/L (101-111); CHOL/HDL RATIO 2.6 (<4.4); CHOLESTEROL 242 mg/dL; CREATININE 0.6 mg/dL (0.4-1.0); GFR - MDRD 100 (>89); GLUCOSE 84 mg/dL (70-100); HDL CHOLESTEROL 93 mg/dL; LDL CHOLESTEROL,CALCULATED 135 mg/dL; LDL/HDL RATIO 1.5 (<4.4); POTASSIUM 3.8 mmol/L (3.5-5.0); SODIUM 139 mmol/L (135-145); TOTAL PROTEIN 7.2 g/dL (6.7-8.2); TRIGLYCERIDES 70 mg/dL; VLDL CHOLESTEROL 14 mg/dL
[2021-08-19 19:02] LABS: ESTIMATED AVERAGE GLUCOSE 114 mg/dL (70-100); HEMOGLOBIN A1c% 5.6 % (4.27-6.07)
[2021-08-19 19:07] LABS: THYROID STIMULATING HORMONE 3.23 uIU/mL (0.34-5.60)
[2021-08-19 19:09] LABS: FREE T4 (FREE THYROXINE) 1.03 ng/dL (0.58-1.64)
== END 2021-08-19 23:59 | disposition home or self-care (01) ==
LOC: LAB.R 08:00
PROVIDERS: ATTEND Internal Medicine
DX: Z00.00 Encounter for general adult medical examination without abnormal findings (principal); K22.70 Barrett's esophagus without dysplasia; R74.8 Abnormal levels of other serum enzymes; Z86.010 Personal history of colon polyps; R73.9 Hyperglycemia, unspecified; E78.5 Hyperlipidemia, unspecified; D72.819 Decreased white blood cell count, unspecified; C43.9 Malignant melanoma of skin, unspecified; M19.90 Unspecified osteoarthritis, unspecified site; M85.80 Other specified disorders of bone density and structure, unspecified site; Z86.16 Personal history of COVID-19; J32.9 Chronic sinusitis, unspecified; Z13.6 Encounter for screening for cardiovascular disorders; E02 Subclinical iodine-deficiency hypothyroidism; Z79.899 Other long term (current) drug therapy
CPT/HCPCS: 80053; 80061; 83036; 83721; 84439; 84443; 85025

== ENCOUNTER 2022-09-30 09:02 | Outpatient (CLI) | payer MEDICARE, OTHER ==
--- NOTE | 2022-09-30 13:42 | DEXA Report ---
PROCEDURE: Dexa Spine and/or Hip INDICATIONS: POST MENOPAUSAL TECHNIQUE: Dual energy x-ray absorptiometry (DXA) was performed on a [employer]sc[employer] System. Regions measur ed are the AP Spine, femoral neck, and if needed forearm. COMPARISON: 06/17/2016 FINDINGS: Lumbar Spine: Bone Mineral Density 1.151 g/cm/cm,T score -0.2. Since the most recent prior study, there has been a statistically significant increase in bone mineral density by 8.3% Left Femoral Neck: Bone Mineral Density 0.929 g/cm/cm, T score -0.8. Left Hip: Bone Mineral Density 1.000 g/cm/cm,T score -0.1. There has been no statistically significant change i n bone mineral density since the prior study. (T score greater or equal to -1.0: NORMAL) (T score from -1.1 to -2.4: OSTEOPENIA) (T score less than or equal to -2.5 to: OSTEOPOROSIS) Impression: By WHO criteria, this patient has normal bone density. Interval statistical increase in bone minteral density of the lumbar spine. No statistical interval c hange in bone minteral density of the hip. Patients with diagnosis of osteoporosis or osteopenia should have regular bone mineral density assess ment. For those eligible for Medicare, routine testing is allowed once every 2 years. Testing frequ ency can be increased for patients who have rapidly progressing disease or for those who are receivin g medical therapy to restore bone mass. Reviewed by: Ang Oh MD on 09/30/2022 1:41 PM PDT Approved by: Ang Oh MD on 09/30/2022 1:41 PM PDT Station ID: [id number]
== END 2022-09-30 09:03 | disposition home or self-care (01) ==
LOC: DI 09:02
PROVIDERS: ATTEND Internal Medicine
DX: Z78.0 Asymptomatic menopausal state (principal)

== ENCOUNTER 2022-09-30 09:02 | Outpatient (CLI) | payer MEDICARE, OTHER ==
--- NOTE | 2022-10-01 12:04 | Mammography Report ---
BILATERAL DIGITAL SCREENING MAMMOGRAM 3D/2D WITH EXAGGERATED CC: 09/30/2022 CLINICAL: Routine screening. Comparison is made to exams dated: 10/10/2020 mammogram, 10/24/2019 mammogram, 07/05/2018 mammogram, 06/18 mammogram, 06/17/2016 mammogram, and 05/27/2014 mammogram - [facility]. Both breasts are heterogeneously dense, which may obscure small masses (category c / 51-75% glandular tissue). No significant masses, calcifications, or other findings are seen in either breast. There has been no significant interval change. IMPRESSION: NEGATIVE There is no mammographic evidence of malignancy. A 1 year screening mammogram is recommended. Based on the Tyrer Cuzick model (a risk assessment model) the patients lifetime risk is 6.8% and her 10 year risk is 3.8%. According to the ACR, ACS, and NCCN guidelines, an annual breast MRI exam daniel g with mammogram is recommended if the patients lifetime risk is 20% or greater. This exam was interpreted at Station ID: [id number]. NOTE: For mammograms, a report in lay terms will be sent to the patient. Approximately 15% of breast malignancies will not be visualized mammographically. In the management of a palpable breast mass, a negative mammogram must not discourage biopsy of a clinically suspicious lesion. Electronically Signed By: Fiona ernandez/johnnie:09/30/2022 11:18:06 letter sent: No_Letter ACR BI-RADS Category 1: Negative 3341F PARENCHYMAL PATTERN: (D) - The breast(s) demonstrate(s) heterogeneously dense fibroglandular kesha daniel. BI-RADS CATEGORY: (1) - 1 Mammogram [id number] 1 year screening LATERALITY: (B)
== END 2022-09-30 09:03 | disposition home or self-care (01) ==
LOC: DI 09:02
PROVIDERS: ATTEND Internal Medicine
DX: Z12.31 Encounter for screening mammogram for malignant neoplasm of breast (principal)

== ENCOUNTER 2022-12-27 10:42 | Emergency (ER) | payer MEDICARE, OTHER ==
[2022-12-27 11:15] VITALS: BP 120/78; O2SAT 99
--- NOTE | 2022-12-27 11:15 | ED Physician Documentation ---
PD HPI LOWER EXT INJURY - Stated complaint Stated Complaint: RT LEG SWOLLEN - Chief complaint Chief Complaint: Ext Problem - History obtained from History obtained from: Patient - History of Present Illness PD HPI LOW EXT INJURY LOCATION: Right, Lower leg, Ankle Type of injury: Other (she had bug bites on lower legs 2 weeks ago that have persisted with abrasion type skin wound that on the right has not had increased swelling, tender, redness for few days.) Timing - duration: Days (the current redness/tender is few days.) Timing - details: Gradual onset Worsened by: Palpating Associated symptoms: Swelling, Discolored (red with warmth). 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 Derm: Skin cancer surgery - Present Medications Home Medications: Ambulatory Orders Medication Instructions Recorded Confirmed Levothyroxine [Synthroid] 25 mcg PO DAILY 08/14/14 12/15/19 Cholecalciferol [Vitamin D3] 5,000 unit PO BID #60 capsule 01/22/17 12/15/19 Multivitamin [Theragran] 1 tab PO DAILYWM #30 tablet 01/22/17 12/15/19 Mupirocin 2% Oint [Bactroban 2% 1 applic TOP TID #15 gm 12/27/22 Oint] cephALEXin [Keflex] 500 mg PO TID #18 cap 12/27/22 - Allergies Allergies/Adverse Reactions: Allergies Allergy/AdvReac Type Severity Reaction Status Date / Time codeine AdvReac Severe Nausea Verified 10/03/14 14:44 amoxicillin trihydrate * AdvReac Intermediate Yeast Verified 10/03/14 14:44 [From Augmentin] Infection potassium clavulanate * AdvReac Intermediate Yeast Verified 10/03/14 14:44 [From Augmentin] Infection - Social History Does the pt smoke?: No Smoking Status: Never smoker Does the pt drink ETOH?: No Does the pt have substance abuse?: No - Immunizations Immunizations are current?: Yes - POLST Patient has POLST: No POLST Status: Full Code PD ED PE NORMAL - Vitals Vital signs reviewed: Yes - General General: Alert and oriented X 3, No acute distress, Well developed/nourished - Derm Derm: Normal color, Warm and dry - Extremities Extremities: No calf tenderness / cord, Other (anterior right ankle with small abrasion appearing wound and surrounding redness/tender. Redness extends up to distal baig. No calf tenderness nor swelling. No fluctuance.) - Neuro Neuro: No motor deficit, No sensory deficit Results - Vitals Vitals: Oxygen O2 Source Room air PD Medical Decision Making - ED course Complexity details: considered differential (redness and tender anterior ankle up baig. not tender at calf and no swelling there. seems cellulitic in timing related to bug bite and persistent abrasion type wound for 2 weeks.), d/w patient Departure - Departure Disposition: 01 Home, Self Care Clinical Impression: Cellulitis of lower leg Bug bite Qualifiers: Encounter type: initial encounter Qualified Code(s): W57.XXXA - Bitten or stung by nonvenomous insect and other nonvenomous arthropods, initial encounter Condition: Stable Record reviewed to determine appropriate education?: Yes Instructions: ED Infec Skin Cellulitis Prescriptions: Mupirocin 2% Oint [Bactroban 2% Oint] 1 applic TOP TID #15 gm cephALEXin [Keflex] 500 mg PO TID #18 cap Comments: I think the redness swelling and warmth is more likely related to a developing skin infection (cellulitis). The timing and character of it would fit for that. It would be less likely a lingering effect of the sting or bite at this time frame. Warm towels to the area or warm soaks to improve good blood flow to the area. Do this a couple times a day. Mupirocin antibiotic ointment to the bite/abrasion areas 2 or 3 times daily. Cephalexin oral antibiotic 3 times daily for the next 5 to 6 days. I would anticipate an improvement in the symptoms over the next 2 to 3 days and resolved by 5 or 6 days. Recheck if not better in that timeframe. Return to the ER if worsening symptoms. I sent your prescription to the [facility] pharmacy here in [place]. Forms: PCP List Discharge Date/Time: 12/27/22 12:37
[2022-12-27] MEDS ORDERED: cephALEXin 250 MG CAPSULE PO STA (11:43)
== END 2022-12-27 12:37 | disposition home or self-care (01) ==
LOC: ED 10:42
DX: L03.115 Cellulitis of right lower limb (principal)
CPT/HCPCS: 99282; 99283; A9270